=== PATIENT | female | born 1990 | race Caucasian/White ===

== ENCOUNTER 2019-04-30 23:19 | Emergency (ER) | payer OTHER ==
[2019-04-30] MEDS ORDERED: NA CHLORIDE 0.9% 1,000 ML ONE (23:50)
[2019-05-01 00:45] LABS: Absolute Lymphocytes (CBC) 2.9 K/uL (0.7-4.9); Basophils % 0.4 % (0-1.3); Hematocrit 38.6 % (36.0-45.0); Lymphocytes % 26.8 % (15.3-44.8); MPV 7.9 fL (7.6-11.3); RBC Red Blood Cell Count 4.31 M/uL (3.86-4.86)
[2019-05-01 00:46] LABS: Potassium 3.3 mmol/L (3.5-5.1)
[2019-05-01] MEDS ORDERED: POTASSIUM CL SA 10 MEQ TAB PO ONE (00:58)
[2019-05-01 01:08] LABS: Urine Blood NEGATIVE (NEG); Urine Glucose NEGATIVE (NEG); Urine Protein NEGATIVE (NEG); Urine pH 6.5 (5.0-7.0)
--- NOTE | 2019-05-01 01:35 | EDPHYS ---
Physician Documentation [facility] Name: Theodora Armando Age: 29 yrs Sex: Female : 1990 Arrival Date: 04/30/2019 Time: 23:22 Bed 14 Private MD: ED Physician Harvey Priest HPI: 04/30 23:44 This 29 yrs old Female presents to ER via Unassigned with complaints of kdr Nausea. 05/01 01:28 The patient presents to the emergency department with nausea, The patient had facial kdr flushing and burning. This sensation then began to spread to her anterior chest. She has no other associated s/s. Onset: The symptoms/episode began/occurred suddenly, just prior to arrival. Possible causes: unknown, There is a family history of DM. The symptoms are aggravated by nothing. The symptoms are alleviated by nothing. Associated signs and symptoms: The patient has no apparent associated signs or symptoms. Severity of symptoms: At their worst the symptoms were mild in the emergency department the symptoms are unchanged. The patient has not experienced similar symptoms in the past. The patient has not recently seen a physician. 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 - Coronavirus screen:: The patient has NOT traveled to [place] in the past 14 days. - Social history:: Smoking status: Reported history of juuling and/or vaping. Patient/guardian denies using alcohol, street drugs. - Ebola Screening: : Patient negative for fever greater than or equal to 101.5 degrees Fahrenheit, and additional compatible Ebola Virus Disease symptoms Patient denies exposure to infectious person Patient denies travel to an Ebola-affected area in the 21 days before illness onset. ROS: 05/01 01:28 Constitutional: Negative for fever, chills, and weight loss, Eyes: Negative for injury, kdr pain, redness, and discharge, Neck: Negative for injury, pain, and swelling, Cardiovascular: Negative for chest pain, palpitations, and edema, Respiratory: Negative for shortness of breath, cough, wheezing, and pleuritic chest pain, Abdomen/GI: Negative for abdominal pain, nausea, vomiting, diarrhea, and constipation, Back: Negative for injury and pain, : Negative for injury, bleeding, discharge, and swelling, MS/Extremity: Negative for injury and deformity, Neuro: Negative for headache, weakness, numbness, tingling, and seizure activity. Psych: Negative for depression, anxiety, suicide ideation, homicidal ideation, and hallucinations, Allergy/Immunology: Negative for hives, rash, and allergies, Endocrine: Negative for neck swelling, polydipsia, polyuria, polyphagia, and marked weight changes, Hematologic/Lymphatic: Negative for swollen nodes, abnormal bleeding, and unusual bruising. Skin: Positive for Subjective sensation of burning. Exam: 01:28 Constitutional: This is a well developed, well nourished patient who is awake, alert, kdr and in no acute distress. Head/Face: Normocephalic, atraumatic. Eyes: Pupils equal round and reactive to light, extra-ocular motions intact. Lids and lashes normal. Conjunctiva and sclera are non-icteric and not injected. Cornea within normal limits. Periorbital areas with no swelling, redness, or edema. Neck: Trachea midline, no thyromegaly or masses palpated, and no cervical lymphadenopathy. Supple, full range of motion without nuchal rigidity, or vertebral point tenderness. No Meningismus. Chest/axilla: Normal chest wall appearance and motion. Nontender with no deformity. No lesions are appreciated. Cardiovascular: Regular rate and rhythm with a normal S1 and S2. No gallops, murmurs, or rubs. Normal PMI, no JVD. No pulse deficits. Respiratory: Lungs have equal breath sounds bilaterally, clear to auscultation and percussion. No rales, rhonchi or wheezes noted. No increased work of breathing, no retractions or nasal flaring. Abdomen/GI: Soft, non-tender, with normal bowel sounds. No distension or tympany. No guarding or rebound. No evidence of tenderness throughout. Back: No spinal tenderness. No costovertebral tenderness. Full range of motion. Skin: Warm, dry with normal turgor. Normal color with no rashes, no lesions, and no evidence of cellulitis. MS/ Extremity: Pulses equal, no cyanosis. Neurovascular intact. Full, normal range of motion. Neuro: Awake and alert, GCS 15, oriented to person, place, time, and situation. Cranial nerves II-XII grossly intact. Motor strength 5/5 in all extremities. Sensory grossly intact. Cerebellar exam normal. Normal gait. Psych: Awake, alert, with orientation to person, place and time. Behavior, mood, and affect are within normal limits. Vital Signs: 04/30 23:40 BP 126 / 84; Pulse 74; Resp 18; Temp 98; Pulse Ox 100% ; Weight 97.52 kg; Height 5 ft. rr5 4 in. (162.56 cm); 05/01 01:00 BP 115 / 79; Pulse 76; Resp 17; Pulse Ox 98% on R/A; rr5 01:46 BP 110 / 74; Pulse 68; Resp 16; Temp 98.4; Pulse Ox 99% on R/A; rr5 04/30 23:40 Body Mass Index 36.90 (97.52 kg, 162.56 cm) rr5 MDM: 01:28 Data reviewed: vital signs, nurses notes, lab test result(s). Counseling: I had a kdr detailed discussion with the patient and/or guardian regarding: the historical points, exam findings, and any diagnostic results supporting the discharge/admit diagnosis, lab results, the need for outpatient follow up. ED course: The patient was stable and feeling better with the interventions given. 01:34 Patient medically screened. [facility] 04/30 23:44 Order name: HgA1c kdr 04/30 23:44 Order name: CBC with Diff [facility] 04/30 23:44 Order name: Chem 7 [facility] 05/01 00:17 Order name: Urine Dipstick--Ancillary (enter results) 6 05/01 00:18 Order name: Urine --Ancillary (enter results) 6 05/01 00:47 Order name: Basic Metabolic Panel; Complete Time: 00:50 EDMS 04/30 23:44 Order name: Urine Dipstick-Ancillary (obtain specimen); Complete Time: 00:13 kdr 05/01 00:17 Order name: Urine Test (obtain specimen); Complete Time: 00:19 cm6 05/01 00:49 Order name: CBC with Automated Diff; Complete Time: 00:50 EDMS 05/01 01:09 Order name: Urine Dipstick-Ancillary; Complete Time: 01:25 EDMS 05/01 01:09 Order name: Urine --Ancillary; Complete Time: : EDMS Administered Medications: 00:01 Drug: NS 0.9% 1000 ml Route: IV; Rate: 1 bolus; Site: left hand; 01:00 Follow up: Response: No adverse reaction; IV Status: Completed infusion; IV Intake: rr5 1000ml 00:50 Drug: Potassium Chloride 40 mEq Route: PO; rr5 01:47 Follow up: Response: No adverse reaction rr5 Disposition: 05/01/19 01:34 Discharged to Home. Impression: Hyperglycemia, unspecified. - Condition is Stable. - Discharge Instructions: Blood Glucose Monitoring, Adult, Hyperglycemia, Acqs-la-Mdnr. - Medication Reconciliation Form, Thank You Letter form. - Follow up: Private Physician; When: 2 - 3 days; Reason: If symptoms return, Further diagnostic work-up, Recheck today's complaints, Continuance of care, Re-evaluation by your physician. - Problem is new. - Symptoms have improved. Signatures: Dispatcher [employer] [facility] Harvey Priest MD MD [facility] Rosemarie Monahan RN RN Tj Mendoza RN RN rr5 Clari Velasquez cm6 Corrections: (The following items were deleted from the chart) 01:47 01:34 05/01/2019 01:34 Discharged to Home. Impression: Hyperglycemia, unspecified. rr5 Condition is Stable. Forms are Medication Reconciliation Form, Thank You Letter, Antibiotic Education, Prescription Opioid Use. Follow up: Private Physician; When: 2 - 3 days; Reason: If symptoms return, Further diagnostic work-up, Recheck today's complaints, Continuance of care, Re-evaluation by your physician. Problem is new. Symptoms have improved. kdr
--- NOTE | 2019-05-01 01:35 | ER ---
Nurse's Notes [facility] Name: Theodora Armando Age: 29 yrs Sex: Female : 1990 Arrival Date: 04/30/2019 Time: 23:22 Bed 14 Private MD: Diagnosis: Hyperglycemia, unspecified Presentation: 04/30 23:40 Presenting complaint: Patient states: i feel hot flushes on my face and on my chest, rr5 feeling going to pass out but did not. it all started 1 hour ago. checked my CBG 180mg/dl. reported nausea and started new medication lexipro last week. 23:40 Method Of Arrival: Ambulatory rr5 23:40 Transition of care: patient was not received from another setting of care. Onset of rr5 symptoms was April 30, 2019. Risk Assessment: Do you want to hurt yourself or someone else? Patient reports no desire to harm self or others. Initial Sepsis Screen: Does the patient meet any 2 criteria? No. Patient's initial sepsis screen is negative. Does the patient have a suspected source of infection? No. Patient's initial sepsis screen is negative. Care prior to arrival: CBG checked at home 180 mg/Dl. 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 - Coronavirus screen:: The patient has NOT traveled to [place] in the past 14 days. - Social history:: Smoking status: Reported history of juuling and/or vaping. Patient/guardian denies using alcohol, street drugs. - Ebola Screening: : Patient negative for fever greater than or equal to 101.5 degrees Fahrenheit, and additional compatible Ebola Virus Disease symptoms Patient denies exposure to infectious person Patient denies travel to an Ebola-affected area in the 21 days before illness onset. Screenin/16 00:04 Abuse screen: Denies threats or abuse. Denies injuries from another. Nutritional hb screening: No deficits noted. Tuberculosis screening: No symptoms or risk factors identified. Fall Risk None identified. Assessment: 04/30 23:40 General: Appears in no apparent distress. uncomfortable, Behavior is calm, cooperative, rr5 appropriate for age, anxious, Reports I cannot explain the feeling. 23:40 Pain: Complains of pain in face Pain does not radiate. Pain radiates to chest Pain rr5 Quality of pain is described as burning, Pain began gradually, Is intermittent. Neuro: Level of Consciousness is awake, alert, obeys commands, Oriented to person, place, time, situation, Appropriate for age. Cardiovascular: Capillary refill < 3 seconds Patient's skin is warm and dry. Respiratory: Airway is patent Respiratory effort is even, unlabored, Respiratory pattern is regular, symmetrical. GI: Abdomen is round Reports nausea. : No signs and/or symptoms were reported regarding the genitourinary system. EENT: No signs and/or symptoms were reported regarding the EENT system. Derm: Skin is intact, is healthy with good turgor, Skin temperature is warm. Musculoskeletal: Circulation, motion, and sensation intact. Capillary refill < 3 seconds. 05/01 01:00 Reassessment: Patient appears in no apparent distress at this time. Patient is alert, rr5 oriented x 3, equal unlabored respirations, skin warm/dry/pink. Patient states feeling better. Patient states symptoms have improved. 01:45 Reassessment: Patient appears in no apparent distress at this time. Patient is alert, rr5 oriented x 3, equal unlabored respirations, skin warm/dry/pink. ED provider at bedside, discharge instruction given and explained without complaints made. Patient states feeling better. Patient states symptoms have improved. Vital Signs: 04/30 23:40 BP 126 / 84; Pulse 74; Resp 18; Temp 98; Pulse Ox 100% ; Weight 97.52 kg; Height 5 ft. rr5 4 in. (162.56 cm); 05/01 01:00 BP 115 / 79; Pulse 76; Resp 17; Pulse Ox 98% on R/A; rr5 01:46 BP 110 / 74; Pulse 68; Resp 16; Temp 98.4; Pulse Ox 99% on R/A; rr5 04/30 23:40 Body Mass Index 36.90 (97.52 kg, 162.56 cm) rr5 ED Course: 04/30 23:22 Patient arrived in ED. ag3 23:22 Tj Mendoza, RN is Primary Nurse. rr5 23:26 Harvey Priest MD is Attending Physician. kdr 23:50 Triage completed. rr5 05/01 00:03 Arm band placed on. hb 00:04 Patient has correct armband on for positive identification. Bed in low position. Call light in reach. Side rails up X 1. 00:05 Inserted saline lock: 22 gauge in left hand, using aseptic technique. Blood collected. oe Administered Medications: 00:01 Drug: NS 0.9% 1000 ml Route: IV; Rate: 1 bolus; Site: left hand; hb 01:00 Follow up: Response: No adverse reaction; IV Status: Completed infusion; IV Intake: rr5 1000ml 00:50 Drug: Potassium Chloride 40 mEq Route: PO; rr5 01:47 Follow up: Response: No adverse reaction rr5 Intake: 01:00 IV: 1000ml; Total: 1000ml. rr5 Outcome: 01:34 Discharge ordered by . kdr 01:47 Patient left the ED. rr5 Signatures: Harvey Priest MD MD kdr Rosemarie Monahan RN RN Brandon Ignacio Alice ag3 Tj Mendoza, RN RN rr5
[2019-05-01 02:51] VITALS: BP 110/74; TEMP 98.4; O2SAT 99
== END 2019-05-01 01:47 | disposition home or self-care (01) ==
LOC: ER 23:19
DX: R73.9 Hyperglycemia, unspecified (principal); F34.1 Dysthymic disorder; K21.9 Gastro-esophageal reflux disease without esophagitis; Z88.5 Allergy status to narcotic agent; Z88.6 Allergy status to analgesic agent; Z91.013 Allergy to seafood
CPT/HCPCS: 85025; 80048; 36415; 81025; 81003; 96360; 99283; J7030

== ENCOUNTER 2019-05-03 01:21 | Emergency (ER) | payer OTHER ==
--- OUTSIDE RECORDS SUMMARY | 2019-05-03 01:24 | XMS REPORT | Summary of Care ---
:1990 Author Organization [facility] - [facility] Address [address] [place] [address] Care Team Providers Name Role Phone Pcp, Patient Does Not Have A Primary Care Provider Encounter Details Date Type Department Care Team Description 04/03/2019 Orders Only [facility] Doctor Unassigned, No [address] [facility] [place] [address] [address] [place] [address] Allergies Active Allergy Reactions Severity Noted Date Comments Aspirin Palpitations 02/22/2019 Codeine Nausea and/or Vomiting 12/24/2017 documented as of this encounter (statuses as of 04/03/2019) Medications Medication Sig Dispensed Refills Start Date End Date Status hydrocortisone Apply to rectal 30 g 0 12/24/2017 Active (ANUSOL-HC) 2.5 % area twice daily rectal cream x 1 week TRULANCE 3 mg Tab Take 1 tablet by 5 02/17/2019 Active mouth daily. pantoprazole 40 mg EC TAKE 1 TABLET BY 11 02/16/2019 Active tablet MOUTH 1 TIME EACH DAY BEFORE BREAKFAST DO NOT CRUSH, CHEW, OR SPLIT docusate 100 mg capsule Take 100 mg by 0 Active mouth daily. norgestimate-ethinyl Take 1 tablet by 1 Package 4 03/23/2019 Active estradiol 0.25-35 mouth daily. mg-mcg per tabletIndications: Abnormal uterine bleeding (AUB), PCOS (polycystic ovarian syndrome) documented as of this encounter (statuses as of 04/03/2019) Active Problems Problem Noted Date PCOS (polycystic ovarian syndrome) 03/23/2019 Abnormal uterine bleeding (AUB) 03/23/2019 Obesity (BMI 30-39.9) 02/22/2019 documented as of this encounter (statuses as of 04/03/2019) Social History Tobacco Use Types Packs/Day Years Used Date Former Smoker Cigarettes Quit: 02/22/2018 Smokeless Tobacco: Never Used Alcohol Use Drinks/Week oz/Week Comments Yes occasionally Sex Assigned at Date Recorded Not on file Job Start Date Occupation Industry Not on file Not on file Not on file Travel History Travel Start Travel End No recent travel history available. documented as of this encounter Last Filed Vital Signs Not on filedocumented in this encounter Plan of Treatment Date Type Specialty Care Team Description 07/20/2019 Office Visit Obstetrics & Gynecology Saige Jones MD [address] [place] [address] [place] [address] [phone] Health Maintenance Due Date Last Done Comments VARICELLA VACCINES (1 of 2 - 01/11/1992 2-dose childhood series) DTaP,Tdap,and Td Vaccines (1 - 2002 Tdap) PAP SMEAR 01/11/2012 INFLUENZA VACCINE (#1) 2018 PNEUMOCOCCAL 0-64 YEARS COMBINED Aged Out No longer eligible based on SERIES patient's age to complete this topic documented as of this encounter Procedures Procedure Name Priority Date/Time Associated Diagnosis Comments EXTERNAL PROVIDER Routine 04/03/2019 12:01 AM FLATWORK [employer] RECORDS documented in this encounter Results Not on filedocumented in this encounter
--- OUTSIDE RECORDS SUMMARY | 2019-05-03 01:24 | XMS REPORT | Summary of Care ---
:1990 Author Organization [facility] Address [address] [place] [id number] Care Team Providers Name Role Phone Pcp, Patient Does Not Have A Primary Care Provider Reason for Visit Reason Comments Results Encounter Details Date Type Department Care Team Description 04/05/2019 Telephone [facility] Saige Jones MD Results Healthcare- [address] [facility], [address] [facility] [address] [place] [address] [place] [phone] Allergies Active Allergy Reactions Severity Noted Date Comments Aspirin Palpitations 02/22/2019 Codeine Nausea and/or Vomiting 12/24/2017 documented as of this encounter (statuses as of 04/05/2019) Medications Medication Sig Dispensed Refills Start Date [...] as of this encounter (statuses as of 04/05/2019) Active Problems Problem Noted Date PCOS (polycystic ovarian syndrome) 03/23/2019 Abnormal uterine bleeding (AUB) 03/23/2019 Obesity (BMI 30-39.9) 02/22/2019 documented as of this encounter (statuses as of 04/05/2019) Social History Tobacco Use Types Packs/Day Years [...] Visit Obstetrics & Gynecology Saige Jones MD [address] [place] [address] [place] [address] [phone] Health Maintenance Due Date Last Done Comments VARICELLA VACCINES (1 of 2 - 01/11/1992 2-dose childhood series) DTaP,Tdap,and Td Vaccines (1 - 2002 Tdap) PAP SMEAR 01/11/2012 INFLUENZA VACCINE (#1) 2018 PNEUMOCOCCAL 0-64 YEARS COMBINED Aged Out No longer eligible based on SERIES patient's age to complete this topic documented as of this encounter Results Not on filedocumented in this encounter
--- OUTSIDE RECORDS SUMMARY | 2019-05-03 01:24 | XMS REPORT ---
:1990 [facility] Address [facility] [place] [address] Care Team Providers Name Role Phone Unavailable Unavailable Unavailable Problems This patient has no known problems. Allergies, Adverse Reactions, Alerts This patient has no known allergies or adverse reactions. Medications This patient has no known medications.
[2019-05-03] MEDS ORDERED: LORAZEPAM 1 MG TABLET ONE (02:48)
[2019-05-03] MEDS ORDERED: ONDANSETRON 4 MG (ODT) TAB ONE (02:48)
--- NOTE | 2019-05-03 02:57 | EDPHYS ---
Physician Documentation [facility] Name: Theodora Armando Age: 29 yrs Sex: Female : 1990 Arrival Date: 05/03/2019 Time: 01:23 Bed 6 Private MD: ED Physician Krystyna Castro HPI: 05/03 02:41 This 29 yrs old Female presents to ER via Ambulatory with complaints of ma2 Anxiety. 02:41 Onset: The symptoms/episode began/occurred gradually, 3 day(s) ago. Severity of ma2 symptoms: At their worst the symptoms were mild in the emergency department the symptoms are unchanged. The patient has experienced similar episodes in the past. 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 - Coronavirus screen:: The patient has NOT traveled to [place] in the past 14 days. - Social history:: Patient/guardian denies using alcohol, street drugs, The patient lives with family, with spouse, Smoking status: Reported history of juuling and/or vaping. - Family history:: not pertinent. - Ebola Screening: : No symptoms or risks identified at this time. ROS: 02:41 Constitutional: Negative for fever, chills, and weight loss. ma2 02:41 All other systems are negative. Exam: 02:41 Constitutional: This is a well developed, well nourished patient who is awake, alert, ma2 and in no acute distress. Head/Face: Normocephalic, atraumatic. Eyes: Pupils equal round and reactive to light, extra-ocular motions intact. Lids and lashes normal. Conjunctiva and sclera are non-icteric and not injected. Cornea within normal limits. Periorbital areas with no swelling, redness, or edema. ENT: Nares patent. No nasal discharge, no septal abnormalities noted. Tympanic membranes are normal and external auditory canals are clear. Oropharynx with no redness, swelling, or masses, exudates, or evidence of obstruction, uvula midline. Mucous membranes moist. Neck: Trachea midline, no thyromegaly or masses palpated, and no cervical lymphadenopathy. Supple, full range of motion without nuchal rigidity, or vertebral point tenderness. No Meningismus. Chest/axilla: Normal chest wall appearance and motion. Nontender with no deformity. No lesions are appreciated. Cardiovascular: Regular rate and rhythm with a normal S1 and S2. No gallops, murmurs, or rubs. Normal PMI, no JVD. No pulse deficits. Respiratory: Lungs have equal breath sounds bilaterally, clear to auscultation and percussion. No rales, rhonchi or wheezes noted. No increased work of breathing, no retractions or nasal flaring. Abdomen/GI: Soft, non-tender, with normal bowel sounds. No distension or tympany. No guarding or rebound. No evidence of tenderness throughout. MS/ Extremity: Pulses equal, no cyanosis. Neurovascular intact. Full, normal range of motion. Neuro: Awake and alert, GCS 15, oriented to person, place, time, and situation. Cranial nerves II-XII grossly intact. Motor strength 5/5 in all extremities. Sensory grossly intact. Cerebellar exam normal. Normal gait. 02:41 Psych: Behavior/mood is anxious. Vital Signs: 02:04 BP 137 / 111; Pulse 98; Resp 18; Temp 98.3; Pulse Ox 98% on R/A; Weight 97.52 kg; ea Height 5 ft. 4 in. (162.56 cm); Pain 0/10; 03:01 BP 112 / 74; Pulse 78; Resp 16; Pulse Ox 98% on R/A; Pain 0/10; jb4 02:04 Body Mass Index 36.90 (97.52 kg, 162.56 cm) ea MDM: 02:07 Patient medically screened. ma2 02:41 Differential Diagnosis anxiety, depression, panic attacks . Data reviewed: vital signs, ma2 nurses notes. Counseling: I had a detailed discussion with the patient and/or guardian regarding: the historical points, exam findings, and any diagnostic results supporting the discharge/admit diagnosis, the presence of at least one elevated blood pressure reading (>120/80) during this emergency department visit, the need for outpatient follow up. Response to treatment: the patient's symptoms have markedly improved after treatment. 02 02:41 Order name: EKG - Nurse/Tech; Complete Time: 03:01 ma2 Administered Medications: 02:46 Drug: Ativan 1 mg Route: PO; ea 03:01 Follow up: Response: No adverse reaction; Anxiety decreased jb4 02:46 Drug: Zofran 4 mg Route: PO; ea 03:01 Follow up: Response: No adverse reaction; Nausea is decreased jb4 Disposition: 05/03/19 02:56 Discharged to Home. Impression: Anxiety disorder, unspecified. - Condition is Stable. - Discharge Instructions: Generalized Anxiety Disorder. - Prescriptions for Ativan 1 mg Oral Tablet - take 1 tablet by ORAL route every 8 hours As needed; 10 tablet. Zofran 4 mg Oral Tablet - take 1 tablet by ORAL route every 12 hours As needed; 20 tablet. - Medication Reconciliation Form, Thank You Letter, Antibiotic Education, Prescription Opioid Use form. - Follow up: Private Physician; When: Tomorrow; Reason: Continuance of care. Signatures: David Selby RN ADRIAN jb4 Linda Jewell RN Krystyna Pennington ea, MD MD ma2 Corrections: (The following items were deleted from the chart) 03:04 02:56 05/03/2019 02:56 Discharged to Home. Impression: Anxiety disorder, unspecified. jb4 Condition is Stable. Discharge Instructions: Generalized Anxiety Disorder. Prescriptions for Ativan 1 mg Oral Tablet - take 1 tablet by ORAL route every 8 hours As needed; 10 tablet, Zofran 4 mg Oral Tablet - take 1 tablet by ORAL route every 12 hours As needed; 20 tablet. and Forms are Medication Reconciliation Form, Thank You Letter, Antibiotic Education, Prescription Opioid Use. Follow up: Private Physician; When: Tomorrow; Reason: Continuance of care. ma2
--- NOTE | 2019-05-03 02:57 | ER ---
Nurse's Notes [facility] Name: Theodora Armando Age: 29 yrs Sex: Female : 1990 Arrival Date: 05/03/2019 Time: 01:23 Bed 6 Private MD: Diagnosis: Anxiety disorder, unspecified Presentation: 05/03 02:00 Presenting complaint: Patient states: Reports she started feeling anxious was unable to ea fall asleep, states " I feel restless and can't sleep". Reports starting Lexapro last reports she stopped it today. Transition of care: patient was not received from another setting of care. Onset of symptoms was May 03, 2019. Risk Assessment: Do you want to hurt yourself or someone else? Patient reports no desire to harm self or others. Initial Sepsis Screen: Does the patient meet any 2 criteria? No. Patient's initial sepsis screen is negative. Does the patient have a suspected source of infection? No. Patient's initial sepsis screen is negative. Care prior to arrival: None. 02:00 Method Of Arrival: Ambulatory ea 02:00 Acuity: ASH 3 ea Triage Assessment: 02:06 General: Appears uncomfortable, Behavior is anxious. Pain: Denies pain. 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 - Coronavirus screen:: The patient has NOT traveled to [place] in the past 14 days. - Social history:: Patient/guardian denies using alcohol, street drugs, The patient lives with family, with spouse, Smoking status: Reported history of juuling and/or vaping. - Family history:: not pertinent. - Ebola Screening: : No symptoms or risks identified at this time. Screenin:04 Abuse screen: Denies threats or abuse. Nutritional screening: No deficits noted. ea Tuberculosis screening: No symptoms or risk factors identified. Fall Risk None identified. Assessment: 02:40 General: Appears in no apparent distress. uncomfortable, Behavior is cooperative, jb4 anxious. Pain: Denies pain. Neuro: Level of Consciousness is awake, alert, obeys commands, Oriented to person, place, time, situation. Cardiovascular: Patient's skin is warm and dry. Respiratory: Airway is patent Respiratory effort is even, unlabored, Respiratory pattern is regular, symmetrical. GI: No signs and/or symptoms were reported involving the gastrointestinal system. : No signs and/or symptoms were reported regarding the genitourinary system. EENT: No signs and/or symptoms were reported regarding the EENT system. Derm: Skin is intact, Skin is pink, warm \\T\\ dry. Musculoskeletal: Circulation, motion, and sensation intact. Range of motion: intact in all extremities. 03:01 Reassessment: Patient appears in no apparent distress at this time. Patient and/or jb4 family updated on plan of care and expected duration. Pain level reassessed. Patient is alert, oriented x 3, equal unlabored respirations, skin warm/dry/pink. PT reports feeling better and denies pain. Anxiety has decreased. Nausea has decreased. Verbalized understanding of d/c and follow up instructions. Ambulated out of ED with steady gait with significant other. Vital Signs: 02:04 BP 137 / 111; Pulse 98; Resp 18; Temp 98.3; Pulse Ox 98% on R/A; Weight 97.52 kg; ea Height 5 ft. 4 in. (162.56 cm); Pain 0/10; 03:01 BP 112 / 74; Pulse 78; Resp 16; Pulse Ox 98% on R/A; Pain 0/10; jb4 02:04 Body Mass Index 36.90 (97.52 kg, 162.56 cm) ea ED Course: 01:23 Patient arrived in ED. ag3 02:03 Triage completed. ea 02:07 Krystyna Castro MD is Attending Physician. ma2 02:11 David Selby, ADRIAN is Primary Nurse. jb4 02:40 Patient has correct armband on for positive identification. Bed in low position. Call jb4 light in reach. Side rails up X 1. 03:01 No provider procedures requiring assistance completed. Patient did not have IV access jb4 during this emergency room visit. Administered Medications: 02:46 Drug: Ativan 1 mg Route: PO; josh 03:01 Follow up: Response: No adverse reaction; Anxiety decreased jb4 02:46 Drug: Zofran 4 mg Route: PO; ea 03:01 Follow up: Response: No adverse reaction; Nausea is decreased jb4 Outcome: 02:56 Discharge ordered by . richard 03:01 Discharged to home ambulatory, with significant other. jb4 03:01 Condition: stable 03:01 Discharge instructions given to patient, Instructed on discharge instructions, follow up and referral plans. medication usage, Demonstrated understanding of instructions, follow-up care, medications, Prescriptions given X 2. 03:04 Patient left the ED. jb4 Signatures: David Selby RN RN jb4 Linda Jewell RN RN ea Alzahri, Mohammad, MD MD ma2 Gomez, Alice ag3
[2019-05-03 03:53] VITALS: TEMP 98.3; O2SAT 98
[2019-05-03 03:54] VITALS: BP 112/74
--- NOTE | 2019-05-03 15:26 | EKG ---
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
== END 2019-05-03 03:04 | disposition home or self-care (01) ==
LOC: ER 01:21
DX: F41.9 Anxiety disorder, unspecified (principal); F32.9 Major depressive disorder, single episode, unspecified; Z88.6 Allergy status to analgesic agent; Z88.5 Allergy status to narcotic agent; Z91.013 Allergy to seafood
CPT/HCPCS: 93005; 99283

== ENCOUNTER 2019-05-25 20:50 | Emergency (ER) | payer OTHER ==
--- OUTSIDE RECORDS SUMMARY | 2019-05-25 20:52 | XMS REPORT ---
:1990 [facility] [place] [address] Care Team Providers Name Role Phone Unavailable Unavailable Unavailable Problems This patient has no known problems. Allergies, Adverse Reactions, Alerts This patient has no known allergies or adverse reactions. Medications This patient has no known medications.
[2019-05-25] MEDS ORDERED: NA CHLORIDE 0.9% 1,000 ML ONE (21:45)
[2019-05-25] MEDS ORDERED: MORPHINE 2 MG/ML SYR ONE (21:45)
[2019-05-25] MEDS ORDERED: FAMOTIDINE 20 MG/2 ML VIAL IV ONE (21:45)
[2019-05-25] MEDS ORDERED: ONDANSETRON 4 MG/2 ML VIAL ONE (21:47)
[2019-05-25 21:57] LABS: Absolute Lymphocytes (CBC) 1.2 K/uL (0.7-4.9); Basophils % 0.4 % (0-1.3); Hematocrit 39.3 % (36.0-45.0); Lymphocytes % 12.7 % (15.3-44.8); MPV 7.4 fL (7.6-11.3); RBC Red Blood Cell Count 4.44 M/uL (3.86-4.86)
[2019-05-25 22:18] LABS: Albumin 3.5 g/dL (3.4-5.0); Bilirubin Direct 0.2 mg/dL (0-0.2); Bilirubin Total 0.7 mg/dL (0.2-1.0); Potassium 3.5 mmol/L (3.5-5.1); Protein, Total 7.8 g/dL (6.4-8.2)
--- NOTE | 2019-05-25 22:41 | RAD REPORT ---
EXAM DESCRIPTION: US - Abdomen Exam Limited - 05/25/2019 10:06 pm CLINICAL HISTORY: Abdominal pain. COMPARISON: None. FINDINGS: The gallbladder wall is not thickened. A gallstone is not seen. The biliary tree is normal caliber. IMPRESSION: Unremarkable gallbladder ultrasound.
[2019-05-25 23:58] LABS: Urine Blood NEGATIVE (NEG); Urine Glucose NEGATIVE (NEG); Urine Protein NEGATIVE (NEG); Urine Specific Gravity >1.030 (1.005-1.030)
[2019-05-26] MEDS ORDERED: ONDANSETRON 4 MG/2 ML VIAL ONE (00:41)
[2019-05-26] MEDS ORDERED: ACETAMINOPHEN 325 MG TABLET ONE (01:55)
[2019-05-26] MEDS ORDERED: DICYCLOMINE HCL 10 MG CAP ONE (02:17)
--- NOTE | 2019-05-26 02:20 | ER ---
Nurse's Notes [facility] Name: Theodora Armando Age: 29 yrs Sex: Female : 1990 Arrival Date: 05/25/2019 Time: 20:52 Bed 27 Private MD: Diagnosis: Nausea and vomiting;Unspecified abdominal pain Presentation: 05/24 20:55 Chief complaint: Patient states: "I've been having some stomach pain for the past year aj1 maybe and I've been to the emergency room twice and they did CT scans but the found nothing, I've had a colonoscopy and they found nothing, and I've been throwing up and today it was foamy so I don't know if its my gallbladder or not. Yesterday I woke up with severe pain on my right side" Denies fever. Denies diarrhea. Coronavirus screen: The patient has NOT traveled to a country currently being monitored by the [facility] within the last 14 days. Ebola Screen: Patient denies travel to an Ebola-affected area in the 21 days before illness onset. Initial Sepsis Screen: Does the patient meet any 2 criteria? HR > 90 bpm. No. Patient's initial sepsis screen is negative. Does the patient have a suspected source of infection? Yes: Acute abdominal pain. Risk Assessment: Do you want to hurt yourself or someone else? Patient reports no desire to harm self or others. 20:55 Method Of Arrival: Ambulatory aj1 20:55 Acuity: ASH 3 aj1 22:10 Onset of symptoms was May 22, 2019. Triage Assessment: 20:57 General: Appears in no apparent distress. uncomfortable, Behavior is anxious, crying. aj1 Pain: Complains of pain in right upper quadrant Pain currently is 5 out of 10 on a pain scale. Neuro: Level of Consciousness is awake, alert, obeys commands, Oriented to person, place, time, situation. Cardiovascular: Patient's skin is warm and dry. Respiratory: Airway is patent Respiratory effort is even, unlabored, Respiratory pattern is regular, symmetrical. GI: Reports upper abdominal pain, nausea, vomiting. 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 - Social history:: Smoking status: Reported history of juuling and/or vaping. Screenin:04 Abuse screen: Denies threats or abuse. Nutritional screening: No deficits noted. vc Tuberculosis screening: No symptoms or risk factors identified. Fall Risk None identified. Assessment: 21:30 General: Appears in no apparent distress. uncomfortable, ill, Behavior is calm, vc cooperative, appropriate for age. Pain: Complains of pain in right upper quadrant. Neuro: Level of Consciousness is awake, alert, obeys commands, Oriented to person, place, time, situation, Appropriate for age. Cardiovascular: Capillary refill < 3 seconds Patient's skin is warm and dry. Respiratory: Airway is patent Respiratory effort is even, unlabored, Respiratory pattern is regular, symmetrical. GI: Reports upper abdominal pain, intolerance of food, nausea, vomiting. GI: Abdomen is round Pt is actively vomiting clear fluid. : No signs and/or symptoms were reported regarding the genitourinary system. EENT: No signs and/or symptoms were reported regarding the EENT system. Derm: Skin is dry, Skin temperature is warm. Musculoskeletal: Circulation, motion, and sensation intact. Range of motion: intact in all extremities. 22:30 Reassessment: Patient and/or family updated on plan of care and expected duration. Pain vc level reassessed. Patient states symptoms have not improved. 23:30 Reassessment: Patient and/or family updated on plan of care and expected duration. Pain vc level reassessed. Patient states symptoms have not improved. 05/25 00:30 Reassessment: Patient and/or family updated on plan of care and expected duration. Pain ls4 level reassessed. Patient is alert, oriented x 3, equal unlabored respirations, skin warm/dry/pink. 01:20 Reassessment: Patient and/or family updated on plan of care and expected duration. Pain ls4 level reassessed. Patient is alert, oriented x 3, equal unlabored respirations, skin warm/dry/pink. PT STATES SHE HAS A HEADACHE PAGE PA NOTIFIED Patient states symptoms have not improved. 02:25 Reassessment: PATIENT REFUSED BENTYL, REFUSED TYLENOL FOR HEADACHE. STATES PHENERGAN, ls4 TORADOL AND COMPAZINE DON'T WORK FOR HER. PT TOLERATING WATER WELL. Vital Signs: 05/24 20:55 BP 146 / 93; Pulse 113; Resp 20; Temp 98.6; Pulse Ox 98% ; Weight 97.52 kg (R); Height aj1 5 ft. 4 in. (162.56 cm) (R); Pain 5/10; 23:59 BP 114 / 77; Pulse 92; Resp 16; Temp 98.1(O); Pulse Ox 98% ; lt1 05/25 02:24 BP 116 / 70; Pulse 76; Resp 16; Temp 98.0(O); Pulse Ox 100% on R/A; Pain 5/10; ls4 05/24 20:55 Body Mass Index 36.90 (97.52 kg, 162.56 cm) aj1 ED Course: 05/24 20:52 Patient arrived in ED. jg7 20:57 Triage completed. aj1 20:57 Arm band placed on Patient placed in waiting room, Patient notified of wait time. aj1 21:14 Flo Rivas PA is PHCP. cp 21:14 Flo Pimentel MD is Attending Physician. cp 21:25 Dena Vyas, ADRIAN is Primary Nurse. vc 22:00 US Abdomen Limited: RUQ/epigastric area In Process Unspecified. EDMS 22:10 Patient has correct armband on for positive identification. Bed in low position. Call vc light in reach. Pulse ox on. NIBP on. 05/25 01:36 Urine --Ancillary (enter results) Sent. ls4 02:09 Urine Dipstick--Ancillary (enter results) Sent. ls4 02:09 CT Abd/Pelvis - IV Contrast Only Sent. ls4 02:13 Diet: Patient given water. Tolerated well. ls4 02:13 No provider procedures requiring assistance completed. ls4 02:19 IV discontinued, intact, bleeding controlled, No redness/swelling at site. Pressure ls4 dressing applied. 05:30 CT Abd/Pelvis - IV Contrast Only In Process Unspecified. EDMS Administered Medications: 05/24 21:53 Drug: morphine 2 mg Route: IVP; Site: right wrist; vc 23:54 Follow up: Response: No adverse reaction; Pain is decreased vc 21:54 Drug: Zofran (Ondansetron) 4 mg Route: IVP; Site: right wrist; vc 23:55 Follow up: Response: No adverse reaction vc 21:54 Drug: Pepcid 20 mg Route: IVP; Site: right wrist; vc 23:55 Follow up: Response: No adverse reaction vc 23:09 Drug: NS 0.9% 1000 ml Route: IV; Rate: 1 bolus; Site: right wrist; vc 12 00:09 Follow up: IV Status: Completed infusion; IV Intake: 1000ml ls4 02:09 Not Given (Patient Refused): Tylenol 1000 mg PO once ls4 02:19 Not Given (Patient Refused): Bentyl 20 mg PO once ls4 Intake: 00:09 IV: 1000ml; Total: 1000ml. ls4 Outcome: 02:19 Discharge ordered by MD. cp 02:26 Discharged to home ambulatory, with family. ls4 02:26 Condition: stable 02:26 Discharge instructions given to patient, family, Instructed on discharge instructions, follow up and referral plans. medication usage, Demonstrated understanding of instructions, follow-up care, medications, Prescriptions given X 3. 02:33 Patient left the ED. ls4 Signatures: Dispatcher [employer] EDMS Destiny Edwards, RN RN [email or web address] Flo Rivas PA PA cp Stewart, Lisa, ADRIAN RN ls4 Maria M Lagunas lt1 Debra Lucianog7 Dena Vyas RN RN vc
--- NOTE | 2019-05-26 02:21 | EDPHYS ---
Physician Documentation [facility] Name: Theodora Armando Age: 29 yrs Sex: Female : 1990 Arrival Date: 05/25/2019 Time: 20:52 Bed 27 Private MD: ED Physician Flo Pimentel HPI: 05/24 21:30 This 29 yrs old Female presents to ER via Ambulatory with complaints of cp Vomiting, Abdominal Pain. 21:30 The patient presents to the emergency department with nausea, with "dry heaves", cp vomiting, that is continuous, abdominal pain, of the abdomen diffusely. Onset: The symptoms/episode began/occurred today. Possible causes: unknown. Associated signs and symptoms: Pertinent negatives: constipation, diarrhea, dysuria, fever, GI bleeding. Severity of symptoms: in the emergency department the symptoms are unchanged despite home interventions. The patient has experienced similar episodes in the past, several times. [employer]: 20:57 LMP 04/2019 aj1 Historical: - Allergies: 20:57 Aspirin; aj1 20:57 Codeine; aj1 20:57 Fish Oil; aj1 20:57 SHELL FISH; aj1 - Home Meds: 20:57 Colace Oral [Active]; escitalopram oxalate Oral [Active]; Femynor [Active]; aj1 pantoprazole Oral [Active]; Trulance [Active]; - PMHx: 20:57 Anxiety; Depression; GERD; aj1 - Immunization history:: Flu vaccine is not up to date. - Social history:: Smoking status: Reported history of juuling and/or vaping. ROS: 21:45 Constitutional: Positive for poor PO intake, Negative for body aches, chills, fever. cp 21:45 Eyes: Negative for injury, pain, redness, and discharge. cp 21:45 ENT: Negative for drainage from ear(s), ear pain, sore throat, difficulty swallowing, difficulty handling secretions. 21:45 Cardiovascular: Negative for chest pain. 21:45 Respiratory: Negative for cough, shortness of breath, wheezing. 21:45 Abdomen/GI: Positive for abdominal pain, nausea and vomiting, Negative for diarrhea, constipation, hematemesis, black/tarry stool, rectal bleeding. 21:45 Back: Negative for pain at rest, pain with movement. 21:45 Skin: Negative for rash. 21:45 Neuro: Negative for altered mental status, headache, weakness. 21:45 All other systems are negative. Exam: 21:50 Constitutional: The patient appears in no acute distress, alert, awake, non-toxic, well cp developed, well nourished, uncomfortable. 21:50 Head/Face: Normocephalic, atraumatic. cp 21:50 Eyes: Periorbital structures: appear normal, Conjunctiva: normal, no exudate, no injection, Sclera: no appreciated abnormality, Lids and lashes: appear normal, bilaterally. 21:50 ENT: External ear(s): are unremarkable, Nose: is normal, Mouth: Lips: moist, Oral mucosa: moist, Posterior pharynx: Airway: no evidence of obstruction, patent. 21:50 Chest/axilla: Inspection: normal, Palpation: is normal, no crepitus, no tenderness. 21:50 Cardiovascular: Rate: tachycardic, Rhythm: regular. 21:50 Respiratory: the patient does not display signs of respiratory distress, Respirations: normal, no use of accessory muscles, no retractions, labored breathing, is not present, Breath sounds: are clear throughout, no decreased breath sounds, no stridor, no wheezing. 21:50 Abdomen/GI: Inspection: abdomen appears normal, Bowel sounds: active, all quadrants, Palpation: soft, in all quadrants, moderate abdominal tenderness, in the epigastric area and right upper quadrant, rebound tenderness, is not appreciated, voluntary guarding, is elicited in the epigastric area. 21:50 Back: pain, that is moderate, of the mid back area. 21:50 Skin: no rash present. Vital Signs: 20:55 BP 146 / 93; Pulse 113; Resp 20; Temp 98.6; Pulse Ox 98% ; Weight 97.52 kg (R); Height aj1 5 ft. 4 in. (162.56 cm) (R); Pain 5/10; 23:59 BP 114 / 77; Pulse 92; Resp 16; Temp 98.1(O); Pulse Ox 98% ; lt1 05/25 02:24 BP 116 / 70; Pulse 76; Resp 16; Temp 98.0(O); Pulse Ox 100% on R/A; Pain 5/10; ls4 05/24 20:55 Body Mass Index 36.90 (97.52 kg, 162.56 cm) aj1 MDM: 05/24 21:15 Patient medically screened. 22:00 Differential diagnosis: gastritis, cholecystitis, pancreatitis, appendicitis, viral cp gastroenteritis, gastroenteritis. 05/25 02:18 Data reviewed: vital signs, nurses notes, lab test result(s), radiologic studies, CT cp scan, and as a result, I will discharge patient. 02:18 Counseling: I had a detailed discussion with the patient and/or guardian regarding: the cp historical points, exam findings, and any diagnostic results supporting the discharge/admit diagnosis, lab results, radiology results, the need for outpatient follow up, a family practitioner, a blocker automatic, to return to the emergency department if symptoms worsen or persist or if there are any questions or concerns that arise at home. Response to treatment: the patient's symptoms have markedly improved after treatment, VSS. Vomiting resolved, and as a result, I will discharge patient. 05/24 21:21 Order name: Basic Metabolic Panel; Complete Time: 22:20 05/24 22:21 Interpretation: Normal except: CL 108; GFR 74. 05/24 21:21 Order name: CBC with Diff; Complete Time: 22:20 05/24 22:21 Interpretation: Normal except: MPV 7.4; LIZANDRO% 81.7; LYM% 12.7. 05/24 21:21 Order name: Creatinine for Radiology; Complete Time: 22:20 05/24 21:21 Order name: Hepatic Function; Complete Time: 22:20 05/24 22:21 Interpretation: Normal except: AST 13; GLOB 4.3; A/G 0.8. 05/24 21:21 Order name: Lipase; Complete Time: 22:20 05/24 22:22 Interpretation: Abnormal: LIP 56. 05/24 23:06 Order name: Urine Dipstick--Ancillary (enter results) [facility] 05/24 21:32 Order name: US Abdomen Limited: RUQ/epigastric area; Complete Time: 22:59 05/24 22:59 Interpretation: Report reviewed. 05/24 22:59 Order name: CT Abd/Pelvis - IV Contrast Only 05/24 23:06 Order name: Urine --Ancillary (enter results) [facility] 05/25 00:02 Order name: Urine --Ancillary; Complete Time: 01:53 EDMS 05/25 00:02 Order name: Urine Dipstick-Ancillary; Complete Time: 01:53 EDMS 05/24 21:21 Order name: IV Saline Lock; Complete Time: 21:55 cp 05/24 21:21 Order name: Labs collected and sent; Complete Time: 21:55 cp 05/24 21:32 Order name: Urine Dipstick-Ancillary (obtain specimen); Complete Time: 23:08 cp 05/24 21:32 Order name: Urine Test (obtain specimen); Complete Time: 23:07 cp 05/24 21:40 Order name: NPO; Complete Time: 21:53 cp 05/25 01:54 Order name: PO challenge; Complete Time: 02:09 cp Administered Medications: 05/24 21:53 Drug: morphine 2 mg Route: IVP; Site: right wrist; vc 23:54 Follow up: Response: No adverse reaction; Pain is decreased vc 21:54 Drug: Zofran (Ondansetron) 4 mg Route: IVP; Site: right wrist; vc 23:55 Follow up: Response: No adverse reaction vc 21:54 Drug: Pepcid 20 mg Route: IVP; Site: right wrist; vc 23:55 Follow up: Response: No adverse reaction vc 23:09 Drug: NS 0.9% 1000 ml Route: IV; Rate: 1 bolus; Site: right wrist; vc 05/25 00:09 Follow up: IV Status: Completed infusion; IV Intake: 1000ml ls4 02:09 Not Given (Patient Refused): Tylenol 1000 mg PO once ls4 02:19 Not Given (Patient Refused): Bentyl 20 mg PO once ls4 Disposition: 07:29 Co-signature as Attending Physician, Flo WOODALL I agree with the assessment and zeke plan of care. Disposition: 05/26/19 02:19 Discharged to Home. Impression: Nausea and vomiting, Unspecified abdominal pain. - Condition is Stable. - Discharge Instructions: Abdominal Pain, Adult, Nausea and Vomiting, Adult. - Prescriptions for Bentyl 20 mg Oral Tablet - take 2 tablet by ORAL route every 6 hours As needed; 40 tablet. Phenergan 25 mg Rectal Suppository - insert 1 suppository by RECTAL route every 6 hours As needed; 12 suppository. promethazine 25 mg Oral Tablet - take 1 tablet by ORAL route every 6 hours As needed; 20 tablet. - Medication Reconciliation Form, Thank You Letter, Antibiotic Education, Prescription Opioid Use form. - Follow up: Private Physician; When: 1 - 2 days; Reason: Recheck today's complaints. - Problem is new. - Symptoms have improved. Addendum: 05/27/2019 07:30 Co-signature as Attending Physician, Flo Pimentel MD I agree with the assessment and c stark plan of care. Signatures: Dispatcher [employer] EDDestiny Lockhart RN RN aj1 Flo Pimentel MD MD cha Page, Corey PA PA cp Gogo Bundy, RN RN ls4 Dena Vyas RN RN vc Corrections: (The following items were deleted from the chart) 05/25 02:33 02:19 05/26/2019 02:19 Discharged to Home. Impression: Nausea and vomiting; Unspecified ls4 abdominal pain. Condition is Stable. Forms are Medication Reconciliation Form, Thank You Letter, Antibiotic Education, Prescription Opioid Use. Follow up: Private Physician; When: 1 - 2 days; Reason: Recheck today's complaints. Problem is new. Symptoms have improved. cp
[2019-05-26 02:54] VITALS: BP 116/70; TEMP 98; O2SAT 100
--- NOTE | 2019-05-26 10:38 | RAD REPORT ---
EXAM DESCRIPTION: CT - Abdomen Pelvis W Contrast - 05/26/2019 6:28 am CLINICAL HISTORY: The patient is 29 years old and is Female; Abd pain;Nausea / vomiting TECHNIQUE: Axial computed tomography images of the abdomen and pelvis with intravenous contrast. S agittal and coronal reformatted images were created and reviewed. This CT exam was performed using one or more of the following dose reduction techniques: automated exposure control, adjustment of t he mA and/or kV according to patient size, and/or use of iterative reconstruction technique. COMPARISON: No relevant prior studies available. FINDINGS: LUNG BASES: Unremarkable. No mass. No consolidation. ABDOMEN: LIVER: Unremarkable. No mass. GALLBLADDER AND BILE DUCTS: No calcified stones. No ductal dilation. PANCREAS: No ductal dilation. No mass. SPLEEN: Unremarkable. ADRENALS: Unremarkable. No mass. KIDNEYS AND URETERS: Unremarkable. The kidneys enhance symmetrically. No obstructing renal or ur eteral calculus is seen. No hydronephrosis or hydroureter. No perinephric fluid or stranding. STOMACH AND BOWEL: The stomach is minimally fluid filled. The small bowel is relatively normal i n caliber. Stool is present throughout colon. There is no mucosal thickening or evidence of bowel obs truction. PELVIS: APPENDIX: The appendix is normal in caliber without surrounding inflammation. BLADDER: The bladder is not well distended. REPRODUCTIVE: Unremarkable as visualized. ABDOMEN and PELVIS: INTRAPERITONEAL SPACE: Unremarkable. No free air. No significant fluid collection. BONES/JOINTS: No acute fracture. SOFT TISSUES: The soft tissues are normal. VASCULATURE: Unremarkable. No abdominal aortic aneurysm. LYMPH NODES: Unremarkable. No enlarged lymph nodes. IMPRESSION: No acute findings on this contrasted CT of the abdomen and pelvis to explain the patient 's symptoms. Electronically signed by: Michelle Sibley MD 05/26/2019 12:11 AM CDT Due to temporary technical issues with the PACS/Fluency reporting system, reports are being signed by the in house radiologist as a courtesy to ensure prompt reporting. The interpreting radiologist is f ully responsible for the content of the report.
== END 2019-05-26 02:33 | disposition home or self-care (01) ==
LOC: ER 20:50
DX: R10.9 Unspecified abdominal pain (principal); F34.1 Dysthymic disorder; Z88.5 Allergy status to narcotic agent; Z88.6 Allergy status to analgesic agent; Z91.013 Allergy to seafood
CPT/HCPCS: 96361; 85025; 80048; 36415; 81025; 80076; 81003; 83690; 74177; 76705; 96375; 96374; 99284; Q9967; J2270; J7030; J2405 ×2

== ENCOUNTER 2019-06-17 07:30 | Day surgery (SDC) | payer SELFPAY ==
--- OUTSIDE RECORDS SUMMARY | 2019-06-17 07:36 | XMS REPORT ---
:1990 [facility] Address [address] [place] [address] Dr. Blandon. [address] [place] [address] Care Team Providers Name Role Phone Unavailable Unavailable Unavailable Problems This patient has no known problems. Allergies, Adverse Reactions, Alerts This patient has no known allergies or adverse reactions. Medications This patient has no known medications.
[2019-06-17] MEDS ORDERED: CEFOXITIN/SWI 1gm 1 GM/10 ML SYR ONE (08:01)
[2019-06-17] MEDS ORDERED: Ringers Lactate 1,000 ML IV ONE ×2 (08:01→10:13)
[2019-06-17] MEDS ORDERED: ONDANSETRON 4 MG/2 ML VIAL ONE (09:15)
[2019-06-17] MEDS ORDERED: GLYCOPYRROLATE 0.2 MG/ML SYR ONE (09:44)
[2019-06-17] MEDS ORDERED: NEOSTIGMINE 1 MG/ML -5 ML ONE (09:44)
[2019-06-17] MEDS ORDERED: ROCURONIUM 50 MG/5 ML VIAL IV ONE (09:50)
[2019-06-17] MEDS ORDERED: MIDAZOLAM HCL 2 MG/2 ML INJ ONE (09:50)
[2019-06-17] MEDS ORDERED: propofoL 200 MG/20 ML VIAL IV ONE (09:50)
[2019-06-17] MEDS ORDERED: FENTANYL CITR 100 MCG/2 ML ONE ×2 (09:50→09:58)
[2019-06-17] MEDS ORDERED: dexAMETHasone 10 MG/ML VIAL ONE (09:50)
[2019-06-17] MEDS ORDERED: LIDOCAINE 1% MPF 5 ML VIAL ONE (09:50)
[2019-06-17] MEDS ORDERED: KETOROLAC 30 MG/ML INJ ONE (09:58)
[2019-06-17] MEDS ORDERED: Mastisol Adhesive Liq ONE (09:59)
[2019-06-17] MEDS: HYDROMORPHONE HCL 1 MG/ML INJ ONE ×2 (10:20→10:25)
[2019-06-17] MEDS ORDERED: PROMETHAZINE INJ 25 MG/ML AMP ONE (10:24)
[2019-06-17] MEDS: MEPERIDINE HCL 50 MG/ML ONE ×3 (10:30→10:40)
[2019-06-17] MEDS ORDERED: FENTANYL CITR 250 MCG/5 ML ONE ×2 (10:31→10:32)
--- NOTE | 2019-06-17 11:13 | OP ---
Date of Procedure: 06/17/2019 Surgeon: Juan David Benoit MD Medicare Nurse: JOSE Shane Preoperative Diagnoses: Chronic cholecystitis and biliary dyskinesia, weight loss. Postoperative Diagnoses: Chronic cholecystitis and biliary dyskinesia, weight loss. Procedure: Laparoscopic cholecystectomy. Estimated Blood Loss: Minimal. Specimens: Gallbladder. Findings: As above. Anesthesia: General. Complications: None. Patient tolerated the procedure in stable condition, taken to Recovery in good general condition. Description Of Procedure: Patient was brought to the OR and placed in supine position. General anes thesia was begun. Patient was prepped and draped in usual sterile fashion. Marcaine 0 5% was infilt rated locally. 15 blade was used to make a 1 cm supraumbilical midline incision. Subcutaneous tissu e was divided. Fascia was identified and divided. #1 Vicryl stay suture was placed. Peritoneal cav ity was entered with sharp and blunt dissection. 12 mm trocar was placed into the peritoneal cavity under direct vision. Pneumoperitoneum was established. Three 5 mm trocars placed, 1 in the epigastr ium just to the right of midline and 2 in the right subcostal region. Laparoscopy revealed chronic i nflammation of the gallbladder with omental adhesions. Gallbladder fundus was retracted superiorly a nd then omental adhesions were taken down from the body and infundibulum with sharp and blunt dissect ion. Bleeding controlled with cautery. The infundibulum identified and retracted inferolaterally. Cystic duct and cystic artery were clearly identified and then clips placed and both structures divid ed. Cautery was used to remove the gallbladder from the liver bed. Bleeding controlled with cautery and then gallbladder retrieved through the umbilicus via EndoCatch bag. Right upper quadrant examin ed. No evidence of bleeding or bile leakage appreciated. Subsequently, all trocars were removed und er direct vision. There was bleeding noted from the epigastric incision and this was easily controll ed with #1 Vicryl via Endo Close method and bleeding was under control and then all other trocars rem martin under direct vision. Effluent was clear. No evidence of bleeding or bile leakage appreciated. Subsequently, stay sutures at the umbilicus tied to each other across the fascial defect. Subcutane ous wounds were irrigated. Bleeding controlled with cautery. 3-0 chromic used to reapproximate subc utaneous tissue and close the skin. Sterile dressing was applied. Patient was awakened and taken to Recovery in good general condition. Discharge Note: Patient to Day Surgery and home when stable. Disposition: Home. Condition: Stable. Discharge Instructions: Resume home meds and diet. Activity as tolerated. No heavy lifting. Remov e outer dressing in 2 days. Shower. Keep wound clean and dry. Keep Steri-Strips on at all times. Follow up in my office in 1 week. Call for appointment. Incentive spirometry. Ultracet 1 tablet p. o. q.4 p.r.n. pain. /MODL Voice ID: [id number] Report ID: [id number]
[2019-06-17] MEDS ORDERED: TRAMADOL 37.5mg/APAP 325mg PER TAB ONE (11:48)
[2019-06-17 12:29] VITALS: BP 101/61; TEMP 97.7; O2SAT 98
== END 2019-06-17 12:20 | disposition home or self-care (01) ==
LOC: OR 07:30
PROVIDERS: ATTEND Surgery
PROC: 0FT44ZZ Resection of Gallbladder, Percutaneous Endoscopic Approach (ICD-10-PCS; principal; 2019-06-17 09:00)
DX: K81.1 Chronic cholecystitis (principal); K82.8 Other specified diseases of gallbladder; K21.9 Gastro-esophageal reflux disease without esophagitis; R63.4 Abnormal weight loss; Z68.36 Body mass index [BMI] 36.0-36.9, adult; F17.290 Nicotine dependence, other tobacco product, uncomplicated; Z88.6 Allergy status to analgesic agent; Z91.013 Allergy to seafood; Z83.3 Family history of diabetes mellitus; Z82.49 Family history of ischemic heart disease and other diseases of the circulatory system
CPT/HCPCS: 88304; J1100; J1170; J2175; J2250; J2405; J2550; J2704; J2710; J3010; J7120

== ENCOUNTER 2020-02-25 | Emergency (ER) | payer SELFPAY ==
--- OUTSIDE RECORDS SUMMARY | 2020-02-25 16:00 | XMS REPORT | Summary of Care ---
:1990 Author Organization [facility] Address [address] [place] [id number] Care Team Providers Name Role Phone Pcp, Does Not Have A Primary Care Provider Reason for Visit Reason Comments Rx Concern/Question Encounter Details Date Type Department Care Team Description 12/14/2019 Telephone [facility] Saige Jones MD Rx Concern/Question Healthcare- [address] DR[address] Wayne [address], [address] [place] [address] [place] [address] [phone] Allergies Active Allergy Reactions Severity Noted Date Comments Aspirin Palpitations 02/22/2019 Codeine Nausea and/or Vomiting 12/24/2017 documented as of this encounter (statuses as of 12/15/2019) Medications Medication Sig Dispensed Refills Start Date End Date Status hydrocortisone Apply to 30 g 0 12/24/2017 Acti ve (ANUSOL-HC) 2.5 % rectal area rectal cream twice daily x 1 week TRULANCE 3 mg Tab Take 1 5 02/17/2019 A ctive tablet by mouth daily. docusate 100 mg Take 100 mg 0 Ac tive capsule by mouth daily. Hyoscyamine Sulfate TAKE 1 2 0 11/11/2019 Active 0.125 mg TbDL TABLETS BY MOUTH EVERY 4 6 HOURS RABEprazole 20 mg Take 20 mg 0 11/16/2019 Active tablet by mouth daily. naproxen 500 mg Take 1 30 tablet 1 11/23/2019 Act maximus tabletIndications: tablet by Dysmenorrhea mouth SEE-INSTRUCT IONS. norethindrone 0.35 Take 1 1 Package 3 12/15/2019 Active mg tablet by tabletIndications: mouth daily. Abnormal uterine bleeding (AUB), PCOS (polycystic ovarian syndrome), Dysmenorrhea norethindrone 0.35 Take 1 1 Package 4 07/20/2019 Discontinued mg tablet by 0 (Reorder) tabletIndications: mouth daily. Abnormal uterine bleeding (AUB), PCOS (polycystic ovarian syndrome), Dysmenorrhea documented as of this encounter (statuses as of 12/15/2019) Active Problems Problem Noted Date Dysmenorrhea 11/23/2019 PCOS (polycystic ovarian syndrome) 03/23/2019 Abnormal uterine bleeding (AUB) 03/23/2019 Obesity (BMI 30-39.9) 02/22/2019 documented as of this encounter (statuses as of 12/15/2019) Social History Tobacco Use Types Packs/Day Years Used Date Former Smoker Cigarettes Quit: 02/23/20 18 Smokeless Tobacco: Never Used Alcohol Use Drinks/Week oz/Week Comments Yes occasionally Sex Assigned at Date Recorded Not on file documented as of this encounter Last Filed Vital Signs Not on filedocumented in this encounter Miscellaneous Notes Telephone Encounter - Shyanne Sy RN - 12/15/2019 3:19 PM CDTPer last provider note, patient is to f/u on March 26, 2020, will give refills to last until then. Shyanne Sy RN 12/15/2019 3:19 PM Telephone Encounter - Chary Rivers - 12/15/2019 9:45 AM CDTPatient request New Rx, form given to nurse. elephone Encounter - Chary Rivers - 12/14/2019 12:56 PM CDTReceived fax, patient request New RX. documented in this encounter Plan of Treatment Date Type Specialty Care Team Description 03/26/2020 Office Visit Obstetrics & Gynecology Yulisa Jones MD [address] [place] [address] [place] [address] [phone] Health Maintenance Due Date Last Done Comments VARICELLA VACCINES (1 of 2 - 01/11/1992 2-dose childhood series) Depression Screening 2003 DTaP,Tdap,and Td Vaccines (1 - 2010 Tdap) PAP SMEAR 01/11/2012 INFLUENZA VACCINE (#1) 2019 PNEUMOCOCCAL 0-64 YEARS COMBINED Aged Out No longer eligible based on SERIES patient's age to complete this topic documented as of this encounter Results Not on filedocumented in this encounter Visit Diagnoses Diagnosis Abnormal uterine bleeding (AUB) PCOS (polycystic ovarian syndrome) Polycystic ovaries Dysmenorrhea documented in this encounter
--- OUTSIDE RECORDS SUMMARY | 2020-02-25 16:00 | XMS REPORT | Continuity of Care Document ---
:1990 Author Organization [facility] Address [address] [place] [address] Care Team Providers Name Role Phone Robetr WOODALL, Mayco Attending Clinician Doctor Unassigned, Name Attending Clinician Unavailable Problems Condition Condition Condition Status Onset Resolution Last Treating Co mments Source Name Details Category Date Date Treatment Clinician Date Low back Diagnosis Active 2014-04-07 M emoria pain 03:19:07 l Low back Tristan n pain Active Diagnosis 04/07/2014 [facility] Contracept Diagnosis Active 2013-11-01 Memoria ion 04:46:31 l management Tristan n Contracept ion management Active Diagnosis 11/01/2013 [facility] Routine Diagnosis Active 2013-11-01 Me moria gynecologi 04:46:31 l demar Routine [place] examinatio gynecologi n demar examinatio n Active Diagnosis 11/01/2013 [facility] Allergies, Adverse Reactions, Alerts Allergy Allergy Status Severity Reaction(s) Onset Inactive Treating Comm ents Source Name Type Date Date Clinician Codeine Codeine Active stomach Memoria Phosphat Phosphat upset 1-22 l e e 00:00: [place] 00 Family History Family Member Diagnosis Comments Start Date Stop Date Source Unknown Family Family History 2013-11-01 2013-11-01 Memori al [place] Member 04:46:31 04:46:31 Social History Social Habit Start Date Stop Date Quantity Comments Source children 2014-04-17 00:00:00 2014-04-17 Jarrett Armstrong 00:00:00 Medications Ordered Filled Start Stop Current Ordering Indication Dosage Frequency Signature Comments Components Source Medication Medication Date Date Medication? Clinician (SIG) Name Name Augmentin Yes Rebekah 1 tablet Mem oria 08-10 [place] l 00:00: Nathaniel 00 No OTC 0 Yes Rebekah Unknown Memoria 1- Dayron l 03:19: Nathaniel 07 Medrol 2014-0 Yes Rebekah as Memoria (Chris) 04-06 Dayron directed l 00:00: Nathaniel 00 Flexeril Yes Rebekah 1 tablet Pedrito lizet 04-06 Dayron l 00:00: [place] 00 Suprax 0 Yes Sharda 1 tablet Memoria 12-09 [facility] l 00:00: x Nathaniel 00 Seasonique Yes Rebekah 1 tablet Me moria 8-13 Dayron l 00:00: Nathaniel 00 Vital Signs Vital Name Observation Time Observation Value Comments Source Weight 2014-04-06 17:30:[facility] Height 2014-04-06 17:30:00 [facility] Temperature Oral (F) 2014-04-06 17:30:00 98.7 F [facility] Heart Rate 2014-04-06 17:30:00 [facility] Diastolic (mm Hg) 2014-04-06 17:30:00 Mem orial Nathaniel Systolic (mm Hg) 2014-04-06 17:30:00 Pedrito rial Nathaniel Weight 2013-10-26 19:00:00 [facility] Height 2013-10-26 19:00:00 [facility] Nathaniel Heart Rate 2013-10-26 19:00:00 [facility] [place] Diastolic (mm Hg) 2013-10-26 19:00:00 Mem orial Nathaniel Systolic (mm Hg) 2013-10-26 19:00:00 Pedrito rial Nathaniel Procedures This patient has no known procedures. Encounters Start End Encounter Admission Attending Care Care Encounter Source Date/Time Date/Time Type Type Clinicians Facility Department ID 2019-12-14 2019-12-14 Telephone Saige Jones [id number] 00:00:00 00:00:00 Mayco Sinha [id number] [place] [id number] Ale [id number] [address] 2019-11-23 2019-11-23 Telemedici Saige Jones [id number] 10:14:34 10:44:34 ne Visit Cam Bigelow [id number] [place] [id number] Professio [id number] [address] 2019-08-03 2019-08-03 Telephone Saige Jones [id number] 00:00:00 00:00:00 Cam Bigelow [id number] [place] [id number] Professio [id number] [address] 2019-07-26 2019-07-26 Telephone Saige Jones [id number] 00:00:00 00:00:00 Cam Bigelow [id number] [place] [id number] Professio [id number] [address] 2019-07-20 2019-07-20 Telemedici Saige Jones [id number] 11:54:21 15:57:46 ne Visit Cam Bigelow [id number] [place] [id number] Professio [id number] [address] 2019-04-05 2019-04-05 Telephone Saige Jones [id number] 00:00:00 00:00:00 Cam Bigelow [id number] [place] [id number] Professio [id number] [address] 2019-04-03 2019-04-03 Orders Doctor SAUNDERS [id number] 00:00:00 00:00:00 Only Unassigned, [place] [id number] [place] [facility] [id number] [id number] 2014-08-10 2014-08-10 Outpatient [facility] [id number] [facility] 12:24:00 12:24:00 [facility] 2014-04-06 2014-04-06 Outpatient [facility] [id number] [facility]inic 11:30:00 11:30:00 [facility] 2013-12-08 2013-12-08 Outpatient [facility] [id number] [facility]inic 16:29:00 16:29:00 [facility] Crista s Practice [facility] 2013-10-26 2013-10-26 Outpatient [facility] [id number] eClinic 14:00:00 14:00:00 [facility] Crist[facility] s Practice [facility] Results This patient has no known results.
--- OUTSIDE RECORDS SUMMARY | 2020-02-25 16:00 | XMS REPORT | Continuity of Care Document ---
:1990 Author Organization [facility] Care Team Providers Name Role Phone [facility] Unavailable Un available Problems Problem Status Onset Classification Date Comments Sourc e Date Reported Low back pain Active Diagnosis 04/07/2014 [facility] Contraception Active Diagnosis 11/01/2013 Lance gallegos [facility] Routine Active Diagnosis 11/01/2013 [facility] Medications Medication Details Route Status Patient Ordering Order Source Instructions Provider Date Augmentin 1 tablet Orally Active 500-125 MG Corinna [facility] Orally Twice a 015 [facility] day [facility] Medrol (Chris) as directed Orally Active 4 mg Orally Corinna Mayco pbell daily 015 [facility] Flexeril 1 tablet Orally Active 5 MG Orally Corinna Poi Three times a 015 Family & day as needed Internal for pain [facility] Suprax 1 tablet Orally Active 400 MG Orally CampbellFox Lance gallegos Once a day 014 [facility] Seasonique 1 tablet Orally Active 0.15-0.03 Corinna [facility] &0.01 MG 014 Family & Orally Once a Internal day [facility] No OTC Unknown NA Active [facility]ron [facility] Allergies, Adverse Reactions, Alerts Substance Category Reaction Severity Reaction Status Date Comments S ource type Reported Codeine Adverse stomach Adverse Active August ll Phosphate Reaction upset Reaction 5 [facility] Immunizations No Data Provided for This Section Results No Data Provided for This Section Pathology Reports No Data Provided for This Section Diagnostic Reports No Data Provided for This Section Consultation Notes No Data Provided for This Section Discharge Summaries No Data Provided for This Section History and Physicals No Data Provided for This Section Vital Signs Vital Sign Value Date Comments Source Weight 184 04/06/2014 [facility] Height 54 04/06/2014 [facility] Temperature Oral (F) 98.7 F 04/06/2014 [place] [facility] Heart Rate 80 04/06/2014 [facility] Diastolic (mm Hg) 72 04/06/2014 [facility] Systolic (mm Hg) 116 04/06/2014 [facility] Weight 192 10/26/2013 [facility] Height 54 10/26/2013 [facility] Heart Rate 88 10/26/2013 [facility] Diastolic (mm Hg) 74 10/26/2013 [facility] Systolic (mm Hg) 110 10/26/2013 [facility] Encounters Location Location Encounter Encounter Reason Attending ADM DC Stat us Source Details Type Number For Provider Date Date Visit [facility] birthcontrol [id number] 10/26 10/26 [facility] [id number] /2013 [facility] [phone] Inte rnal and [id number] [facility] birthcontrol [id number] 10/26 10/26 [facility] [place] [id number] /2013 [facility] [id number] Inte rnal and [id number] [facility] birthcontrol [id number] 10/26 10/26 [facility] [place] [id number] /2013 [facility] [id number] Inte rnal and [id number] [facility] birthcontrol [id number] 10/26 10/26 [facility] [place] [id number] /2013 [facility] [id number] Inte rnal and [id number] [facility] Needs call [id number] 12/08 12/08 [facility] back from [id number] [facility] Practice Medical [id number] Int ernal and Staff [id number] [facility] [place] Needs call [id number] 12/08 12/08 [facility] [place] back from [id number] /2013 [facility] Practice Medical [id number] Int ernal and Staff [id number] [facility] Needs call [id number] 12/08 12/08 [facility] [place] back from [id number] /2013 Fam [facility] & Practice Medical [id number] Int ernal and Staff [id number] [facility] NEED WORK [id number] 04/06 04/06 [facility] RELEASE [id number] /2014 Famil y & Practice [id number] Inte rnal and [id number] [facility] NEED WORK [id number] 04/06 04/06 [facility] Family RELEASE [id number] /2014 F[facility] y & Practice [id number] Inte rnal and [id number] [facility] paperwork [id number] 04/17 04/17 C [facility] Family [id number] /2014 [facility] [id number] Inte rnal and [id number] [facility] Unknown [id number] 08/10 08/10 Cam cindi Family [id number] /2014 [facility] [id number] Inte rnal and [id number] [facility] Procedures No Data Provided for This Section Assessment and Plan No Data Provided for This Section Plan of Care No Data Provided for This Section Social History Social History Date Source Social History ElementQualifiersDate Reported 04/17/2014 [facility] . 0 Apr 17, 2014 Tobacco Use: . Are you a: current smoker 1 PPD Apr 17, 2014 Use of recreational / street drugs? . Answer: No Apr 17, 2014 Marital Status: single. Apr 17, 2014 Do you drink alcohol? . 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
--- NOTE | 2020-02-25 17:50 | ER ---
Nurse's Notes [facility] Name: Theodora Armando Age: 30 yrs Sex: Female : 1990 Arrival Date: 02/25/2020 Time: 15:58 Bed Waiting Private MD: Diagnosis: Presentation: 02/24 16:00 Chief complaint: EMS states: Abdominal pain x 3 years, denies tenderness on palpation, jl7 VSS BP 130 systolic, HR 100, 100% on RA. Coronavirus screen: Client denies travel out of the [place] in the last 14 days. At this time, the client does not indicate any symptoms associated with coronavirus-19. Ebola Screen: No symptoms or risks identified at this time. Onset of symptoms was 2017. 16:00 Method Of Arrival: [facility] jl7 Historical: - Allergies: 17:48 Aspirin; jl7 17:48 Codeine; jl7 17:48 Fish Oil; jl7 17:48 SHELL FISH; jl7 - PMHx: 17:48 Anxiety; Depression; GERD; jl7 ED Course: 15:58 Patient arrived in ED. ag5 16:00 Arm band placed on right wrist. Patient placed in waiting room, in a wheelchair, jl7 Patient notified of wait time. 16:22 Patient's name was called from ER lobby. No response. Unable to locate patient. Will jl7 disposition as left without being seen by a provider. Administered Medications: No medications were administered Outcome: 17:50 Patient left the ED. jl7 Signatures: Reji Yan RN RN jl7 Kaylie Rice [facility] [place]
== END 2020-02-25 17:50 | disposition left against medical advice (07) ==
DX: Z53.21 Procedure and treatment not carried out due to patient leaving prior to being seen by health care provider (principal)
CPT/HCPCS: 99282